=== PATIENT | male | born 1965 | race Caucasian/White ===

== ENCOUNTER → 2017-07-08 08:29 | Day surgery (SDC) | payer BC ==
--- NOTE | 2017-06-19 06:59 | HP ---
HISTORY AND PHYSICAL: DATE OF ADMISSION/SURGERY: 07/08/17 DATE OF HPI: 06/18/17 ATTENDING SURGEON: Dr. Aguero * (DICTATED BY JACQUES ANDERSON) PROCEDURE: Left knee arthroscopic surgery. CHIEF COMPLAINT: Left knee pain. HISTORY OF PRESENT ILLNESS: Domo is a 51-year-old male who has had left knee pain that has been intermittently bothersome with throbbing pain for the last 10 years. He has had an MRI in the past that showed some wear of the patellofemoral joint and horizontal medial meniscal tearing as well. He had previously discussed left knee arthroscopy with Dr. Aguero and he is here today to proceed with the procedure. He denies any history of problems with anesthesia. No history of DVT or PE. PAST MEDICAL HISTORY: He has a single kidney and has elevated blood pressure, but no diagnosis of hypertension. PAST SURGICAL HISTORY: Right fourth finger ganglion cyst removal. MEDICATIONS: He takes ibuprofen p.r.n. ALLERGIES: No known drug allergies. Denies allergies to anesthesia, adhesives or tape. FAMILY MEDICAL HISTORY: The patient denies any known medical problems in his immediate family. SOCIAL HISTORY: Does not smoke tobacco. He drinks about three drinks of alcohol a week and he does not use illicit drugs or marijuana otherwise. REVIEW OF SYSTEMS: Positive for his current complaint. He also endorses ability to walk a flight of stairs and a city block. Otherwise, it was negative for HEENT, integumentary, cardiothoracic, pulmonary, GI, , musculoskeletal, neuro, endocrinologic and hematologic problems. PHYSICAL EXAMINATION GENERAL: He is a well-nourished, well-developed 51-year-old male, in no acute distress. Alert and oriented x3. Ambulating without a limp. VITAL SIGNS: Height 71 inches, weight 169 pounds, pulse 79, blood pressure 142/ 82, respirations 15, temperature 98. Pain level 0. BMI 23.6. HEENT: Normocephalic, atraumatic. Pupils are equal, round and reactive to light and accommodation. Extraocular movements intact. NECK: Supple. No palpable cervical lymph node. His thyroid is smooth and nontender. PULMONARY: Lungs clear to auscultation bilaterally, with no wheezes, rales or rhonchi. CARDIAC: Regular rate and rhythm. No murmurs, rubs, or gallops. No pedal edema. 2+ left DP pulse. ABDOMEN: Soft and nontender. MUSCULOSKELETAL: Left lower extremity, he has some tenderness at the medial joint line. Otherwise, he has no tenderness at the patella or anterolateral joint. He is able to flex from 0 to 130 degrees, and he has no effusion. Knee is stable to varus and valgus stress. He has negative Jose's. He is neurovascularly intact distally. DIAGNOSTIC STUDIES: He had an MRI previously that again showed some some wear of the patellofemoral joint and medial meniscal horizontal tear. IMPRESSION: Left knee medial meniscal tear. PLAN: Domo is scheduled to undergo left knee arthroscopy with Dr. Aguero on . He will return to clinic in 8 to 10 days postop for followup and suture removal. Prescription for pain medication will be prescribed on day of surgery. All questions were answered today. JACQUES ANDERSON [id number]/[facility] #: [id number] SNEHA
[~2017-07-08 08:29] MED LIST: Buffered Lidocaine 0.9% SYRIN* 5 ML/SYR SYRINGE INTRADERM ONE; Dexamethasone IV* 4 MG/ML 1 ML (4 MG) ONE; EPHEDrine (Pressors)* 50 MG/ML VIAL ONE; Famotidine IV* 10 MG/ML 2 ML (20 mg) IV ONE; Famotidine IV* 10 MG/ML 2 ML (20 mg) ONE; Ketorolac INJ* 30 MG/ML 1 ML VIAL ONE; Lidocaine 1.5% EPI 1:200,000* 30 ML SDV ONE; Lidocaine 2% PF * 5 ML VIAL ONE; Metoclopramide TAB* 10 MG ONE; Metoclopramide TAB* 10 MG PO ONE; Midazolam* 1 MG/ML 5 ML VIAL (5 MG) ONE; Naloxone* 0.4 MG/ML 1 ML VIAL IV PRN; Ondansetron INJ* 2 MG/ML VIAL IV PRN; Ondansetron INJ* 2 MG/ML VIAL ONE; Propofol* 10 MG/ML 20 ML BTL IV PUSH ONE; ceFAZolin 2 GM in 100 MLS NS (*) BAG IVPB ONE; fentaNYL* 50 MCG/ML 2 ML VIAL (100 MCG VIAL) IV PRN; fentaNYL* 50 MCG/ML 2 ML VIAL (100 MCG VIAL) ONE
[2017-07-08 13:30] VITALS: BP 126/77
--- NOTE | 2017-07-09 11:47 | OP ---
CC: Dr. Freddy Garcia, [facility].* DATE OF OPERATION: 07/08/17 - SDS DATE OF : 69 SURGICAL CARE: Left knee. SURGEON: Meliton Aguero MD. ASSISTANTS: JACQUES Larry. ANESTHESIOLOGIST: Dr. Rosalino Carrera. ANESTHESIA: LMA general. PRE-OP DIAGNOSIS: Left knee medial meniscal tear. 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 OPERATIVE PROCEDURE: Left knee partial medial meniscectomy and chondroplasty of the patella. COMPLICATIONS: There are no complications. DRAINS: There were no drains. Tourniquet control was utilized on the left lower extremity. BLOOD LOSS: 40 mL. REPLACEMENT: Crystalloid fluids. CONDITION: Stable to the recovery room. INDICATION: Persistent medial knee pain, he has not been able to get back to the activities that he most enjoys running, cutting and pivoting and an MRI scan had shown medial meniscal tear. We recommended arthroscopic surgery. DESCRIPTION OF PROCEDURE: The patient was brought to the operating room and placed on the operating room table in a supine position. Following the administration of the anesthetic, the left proximal thigh was wrapped with a tourniquet and the left leg was prepped from the tourniquet to the foot with ChloraPrep and then drape free and carefully sealed off in usual fashion for arthroscopic surgery of the knee. The leg, ankle and foot portion of his left lower extremity was sealed with an impermeable drape and sealed off with a Vi- Drape at the top of this. After prepping, draping and sealing off we did our universal protocol time-out confirming Domo Loza and plan for left knee arthroscopic surgery. We all agreed and we proceeded. The leg was exsanguinated. The tourniquet elevated to 275. The knee was set up for arthroscopy. The arthroscope lateral to the patellar tendon, probe and operative instruments medial to the patellar tendon, and inflow catheter superomedial to the patella. The knee was irrigated initially and then survey of the joint showed that he had chondromalacia patella some in the mid patella and towards the medial facet. This was crabmeat fibrillations and these were shaved. The medial and lateral gutters were clear. The lateral femoral condyle , popliteus, lateral meniscus, lateral tibial plateau were normal. ACL and PCL were normal. The ligamentum mucosum was present and I did debride that to make surgical viewing easier. The medial femoral condyle and media tibial plateau were in good condition. The medial meniscus was normal anteriorly and torn in a complex fashion mid and posteriorly with superior and inferior leaflets and then flap fragments, including a loose posterior horn that was completely loose. Meniscectomy was done carefully with knee on a valgus stress between 0 and 30 degrees of flexion with some external rotation. The shaver was utilized and baskets and care was taken not to injure the adjacent condyle and plateau. The meniscectomy was completed through the intercondylar notch to get the posterior flap fragment. Final photographs were obtained and the tourniquet was deflated. The knee was irrigated with another 3 L of saline irrigation solution then emptied then instilled with Xylocaine 1.5% with epinephrine 30 mL and the skin portals closed with interrupted 3-0 Surgipros and a dressing applied after washing and drying of Betadine soaked Release, sterile gauze, sterile Webril, cryotherapy cuff, ABD pads, and a 6-inch Isak bandage loosely applied. The patient was then returned to the recovery room in stable and satisfactory condition, having tolerated the procedure very well. [id number]/[facility] #: [id number] SNEHA
== END | disposition home or self-care (01) ==
LOC: OR 08:29
PROVIDERS: ATTEND Orthopaedic Surgery
DX: S83.242D Other tear of medial meniscus, current injury, left knee, subsequent encounter (principal); R03.0 Elevated blood-pressure reading, without diagnosis of hypertension; X58.XXXD Exposure to other specified factors, subsequent encounter
CPT/HCPCS: A9270-GY; J1100; J1885; J2250; J2405; J2704; J3010

== ENCOUNTER 2021-09-08 19:03 | Inpatient (IN) ==
[2021-09-08] MEDS ORDERED: NS 0.9% 1000 ml BAG 1,000 ML IV ONE (19:26)
[2021-09-08] MEDS ORDERED: Droperidol 5 MG/2 ML 2 ML VIAL IV ONE (19:27)
[2021-09-08] MEDS ORDERED: Morphine 10 MG/ML VIAL (1 ml) IV ONE (19:27)
[2021-09-08 19:54] LABS: ABS Eosinophils 0.1 10^3/ul (0-0.6); ABS Lymphocytes 1.2 10^3/ul (1.0-4.8); ABS Monocytes 0.6 10^3/ul (0-0.8); ABS Neutrophils 9.4 10^3/ul (1.5-7.7); Eosinophil % 0.9 %; Hematocrit 45 % (42-52); Hemoglobin 15.1 g/dL (14.0-18.0); Lymphocyte % 10.6 %; Mean Corpuscular HGB Conc 34 g/dL (31-36); Mean Corpuscular Hemoglobin 31 pg (27-31); Mean Corpuscular Volume 91 fL (80-94); Mean Platelet Volume 7.2 fL (7.4-10.4); Platelet Count 252 10^3/uL (150-450); Red Blood Count 4.94 10^6 /uL (4.18-5.48); Red Cell Distribution Width 13 % (10-15); White Blood Count 11.3 10^3/uL (3.5-10.8)
[2021-09-08 20:12] LABS: Albumin 4.5 g/dL (3.2-5.2); Calcium 9.5 mg/dL (8.6-10.3); Globulin 2.3 g/dL (2-4); Potassium 4.4 mmol/L (3.5-5.0); Total Bilirubin 1.4 mg/dL (0.2-1.0); Total Protein 6.8 g/dL (6.4-8.9); eGFR CKD-EPI 49.8 (>60)
[2021-09-08 20:24] LABS: Urine Appearance Clear; Urine Bilirubin Negative (Negative); Urine Blood 2+ (Negative); Urine Color Yellow; Urine Glucose Negative (Negative); Urine Ketones 2+ (Negative); Urine Nitrite Negative (Negative); Urine Protein Negative (Negative); Urine Specific Gravity 1.019 (1.002-1.030); Urine Urobilinogen Negative (Negative)
[2021-09-08 20:27] LABS: Urine Bacteria Absent (Absent); Urine Red Blood Cell 3+(>10/hpf) (Absent); Urine Squamous Epithelial Cell Present (Absent); Urine White Blood Cell 1+(6-10/hpf) (Absent)
[2021-09-08] MEDS ORDERED: Ondansetron 4 mg VIAL 2 MG/ML 2 ml VIAL IV PRN (22:58)
[2021-09-08] MEDS ORDERED: fentaNYL 100 mcg/2 ml 50 MCG/ML VIAL IV SLOW PU PRN (23:03)
[2021-09-08] MEDS ORDERED: Lactated Ringers 1000 ml BAG 1,000 ML IV SCH (23:45)
[2021-09-09 06:13] LABS: ABS Eosinophils 0.2 10^3/ul (0-0.6); ABS Lymphocytes 1.4 10^3/ul (1.0-4.8); ABS Monocytes 0.6 10^3/ul (0-0.8); ABS Neutrophils 5.3 10^3/ul (1.5-7.7); Eosinophil % 2.1 %; Hematocrit 38 % (42-52); Lymphocyte % 18.2 %; Mean Corpuscular HGB Conc 34 g/dL (31-36); Mean Corpuscular Hemoglobin 31 pg (27-31); Mean Corpuscular Volume 90 fL (80-94); Mean Platelet Volume 7.5 fL (7.4-10.4); Platelet Count 200 10^3/uL (150-450); Red Blood Count 4.24 10^6 /uL (4.18-5.48); Red Cell Distribution Width 13 % (10-15); White Blood Count 7.4 10^3/uL (3.5-10.8)
[2021-09-09 06:19] LABS: Activated Partial Thrombo Time 29.5 seconds (26.0-38.0); INR 1.08 (0.86-1.15)
[2021-09-09 06:30] LABS: Calcium 8.1 mg/dL (8.6-10.3); Potassium 4.4 mmol/L (3.5-5.0); eGFR CKD-EPI 54.1 (>60)
[2021-09-09] MEDS ORDERED: Acetaminophen IV 1 GM/100ML 100 ML IV SCH ×2 (08:00)
[2021-09-09] MEDS ORDERED: Iohexol 180 (CONTRAST) 20 ML SDV IV ONE (08:39)
[2021-09-09] MEDS ORDERED: Midazolam 2 mg/2 ml VIAL 1 mg/ml 2 ml VIAL (2 mg) ONE (08:40)
[2021-09-09] MEDS ORDERED: fentaNYL 100 mcg/2 ml 50 MCG/ML VIAL ONE (08:40)
[2021-09-09] MEDS ORDERED: Iohexol 180 (CONTRAST) 10 ML SDV IV ONE (08:40)
[2021-09-09] MEDS ORDERED: Propofol 10 MG/ML 20 ML BTL ONE ×2 (08:42)
[2021-09-09] MEDS ORDERED: EPHEDrine (Pressors) 50 MG/ML VIAL ONE (08:42)
[2021-09-09] MEDS ORDERED: Metoclopramide 5 MG/ML VIAL (10 mg) IV PRN (08:51)
[2021-09-09] MEDS ORDERED: fentaNYL 100 mcg/2 ml 50 MCG/ML VIAL IV PRN (08:51)
[2021-09-09] MEDS ORDERED: Ondansetron 4 mg VIAL 2 MG/ML 2 ml VIAL IV PRN (08:51)
[2021-09-09] MEDS ORDERED: Buffered Lidocaine 1% SYRIN 1 ml INTRADERM ONE (08:51)
[2021-09-09] MEDS ORDERED: HYDROcodone/ACETAMIN 5/325 mg TAB PO PRN (08:51)
[2021-09-09] MEDS ORDERED: Sodium Citrate/Citric Acid LIQ 15 ML UDC PO ONE (08:51)
[2021-09-09] MEDS ORDERED: Naloxone 0.4 mg VIAL 0.4 mg/ml 1 ml VIAL IV PRN (08:51)
[2021-09-09] MEDS ORDERED: cefTRIAXone 1 gm/50 mL D5W 1 GM/50 ML BAG IV ONE (08:53)
[2021-09-09] MEDS ORDERED: Succinylcholine 200 mg VIAL 20 mg/ml 10 ml VIAL (200 mg) ONE (08:54)
[2021-09-09] MEDS ORDERED: Lactated Ringers 1000 ml BAG 1,000 ML IV SCH (09:00)
[2021-09-09] MEDS ORDERED: Ondansetron 4 mg VIAL 2 MG/ML 2 ml VIAL ONE (10:12)
[2021-09-09] MEDS ORDERED: Dexamethasone IV 4 MG/ML VIAL 1 ml VIAL ONE (10:12)
[2021-09-09] MEDS ORDERED: NS 0.9% 1000 ml BAG 1,000 ML IV SCH (12:15)
[2021-09-09 14:51] VITALS: BP 142/75
== END 2021-09-09 14:25 | disposition home or self-care (01) | DRG 661 ==
LOC: ED 19:03 → SSU 09-09 01:11
PROVIDERS: ADMIT Student in an Organized Health Care Education/Training Program; ATTEND Student in an Organized Health Care Education/Training Program